=== PATIENT | female | born 1945 | race Caucasian/White ===

== ENCOUNTER 2017-08-26 10:40 | Inpatient (IN) | payer OTHER ==
[~2017-08-26] VITALS: Ht 170.2 cm; Wt 108.9 kg
[~2017-08-26 10:40] MED LIST: ADULT LOW DOSE81 MG PO; AUGMENTIN 875875 MG PO; B-100 COMPLEX1 EAC1 PO; CALCIUM; CARVEDILOL12.5 MG PO; CELEXA 20 MG TA20 MG PO; COQ10 SG 100 S1 EACH PO; FOLIC ACID; GLUCOSAMINE &1 EACH PO; HCTZ; NORVASC10 MG PO; PREDNISONE 20 M20 M1 PO; PRINIVIL20 MG PO; PROAIR HFA8.5 GM IH; SIMVASTATIN80 MG PO; VENTOLIN HFA 1818 GM INH; ZPAK PO
[2017-08-26 10:45] VITALS: BP 169/73
[2017-08-26] MEDS ORDERED: FISH OIL 1,001000 M2 PO (10:49)
[2017-08-26] MEDS ORDERED: LOVASTATIN 20 M20 MG PO (10:49)
[2017-08-26] MEDS ORDERED: FLAXSEED OIL1000 MG PO (10:49)
[2017-08-26 11:09] LABS: ABSOLUTE BASOPHILS 0.1 thou/uL (0.0-0.2); ABSOLUTE EOSINOPHILS 0.1 thou/uL (0.0-0.7); ABSOLUTE LYMPHOCYTES 1.2 thou/uL (0.8-5.3); ABSOLUTE MONOCYTES 0.7 thou/uL (0.0-1.2); ABSOLUTE NEUTROPHILS 3.8 thou/uL (1.6-8.1); BASOPHILS 1.2 %; EOSINOPHILS 2.4 %; HEMATOCRIT 40.3 % (37.0-47.0); HEMOGLOBIN 13.5 gm/dL (12.0-15.0); LYMPHOCYTES 20.6 %; MCH 30.1 pg (26.0-34.0); MCHC 33.5 g/dL (28.0-37.0); MCV 89.8 fL (80.0-100.0); MONOCYTES 11.5 %; MPV 8.4 fl. (7.2-11.1); NUCLEATED RBCS 0 /100WBC; PLATELET COUNT* 172 thou/uL (150-400); POLYS 64.3 %; RBC 4.49 mil/uL (4.20-5.00); RDW-CV 13.6 % (10.5-14.5)
[2017-08-26 11:16] LABS: ANION GAP 7 mmol/L (7-16); BUN 24 mg/dL (7-18); CHLORIDE 101 mmol/L (98-107); CO2 29 mmol/L (21-32); GLUCOSE 122 mg/dL (70-99); POTASSIUM 4.3 mmol/L (3.5-5.1); SODIUM 137 mmol/L (136-145)
[2017-08-26 11:20] LABS: INR 1.1; PROTIME 10.7 Seconds (9.20-11.50)
[2017-08-26 11:28] LABS: URINE BILIRUBIN NEGATIVE (Negative); URINE BLOOD NEGATIVE (Negative); URINE CLARITY CLEAR; URINE COLOR YELLOW; URINE GLUCOSE-RANDOM NEGATIVE (Negative); URINE KETONES NEGATIVE (Negative); URINE LEUKOCYTES-REFLEX TRACE (Negative); URINE NITRITE-REFLEX NEGATIVE (Negative); URINE PROTEIN NEGATIVE (Negative); URINE UROBILINOGEN 0.2 E.U./dl (0.2-1.0)
[2017-08-26 11:28] LABS: ALBUMIN 4.2 g/dL (3.4-5.0); ALKALINE PHOSPHATASE 58 U/L (46-116); NT-PRO BRAIN NAT PEPTIDE 109 pg/mL (<300); SGOT 25 U/L (15-37); SGPT 25 U/L (30-65); TOTAL BILIRUBIN 0.4 mg/dL (<0.1-1.0); TOTAL PROTEIN 7.8 g/dL (6.4-8.2); TROPONIN-I LEVEL <0.06 ng/mL (<0.06)
[2017-08-26 11:38] LABS: BACTERIA-REFLEX 1-9 Few /HPF (None Seen); CASTS None Seen /LPF (None Seen); CRYSTALS None Seen /LPF (None Seen); MUCUS None Seen strn/LPF (None Seen); SQUAMOUS 4-10 Moderate /LPF (0-3); URINE RBC 0-2 Rare /HPF (0-2); URINE WBC-REFLEX 0-5 Rare /HPF (0-5)
[2017-08-26 16:18] VITALS: BP 164/76
--- NOTE | 2017-08-26 16:26 | EKG ---
[place] [address] ELECTROCARDIOGRAM REPORT Name: RAINER JERNIGAN Room: [place] [address] ADM IN ..#: [id number] Admission: 08/26/17 Attend Phys: Candice Clement Discharge: Date of : 41 Report #: [id number] THIS REPORT FOR: //name// [facility] ED Test Date: 2017-08-26 Test Time: 10:50:05 Pat Name: RAINER JERNIGAN Department: Room: [facility] Gender: F Neck Cutter: Anum MCCLAIN : 1945 Requested By: Ganesh Alfonso Order Number: [id number] MD: Michele Mireles Measurements Intervals Echo Rate: 68 P: 44 TX: 216 QRS: 17 QRSD: 101 T: 85 QT: 396 QTc: 422 Interpretive Statements Sinus rhythm Borderline prolonged TX interval Borderline repolarization abnormality Compared to ECG 08/11/2016 16:34:18 No significant changes Electronically Signed On 08-26-2017 16:26:14 [employer] by Michele Mireles [email or web address] <ELECTRONICALLY SIGNED> By: Michele Mireles MD, [facility] 08/26/17 1626 1050 49 Michele Mireles MD, [facility] /EPI
[2017-08-26 16:30] VITALS: BP 180/68
[2017-08-26] MEDS ORDERED: FENOFIBRATE160 MG PO (17:00)
[2017-08-26] MEDS ORDERED: ALBUTEROL PO (17:00)
[2017-08-26] MEDS ORDERED: CRANBERRY200 MG PO (17:01)
[2017-08-26] MEDS ORDERED: ZANTAC 150MG T150 MG PO (17:01)
[2017-08-26] MEDS ORDERED: CO Q-10100 MG PO (17:02)
[2017-08-26] MEDS ORDERED: CINNAMON500 MG PO (17:02)
[2017-08-26 20:00] VITALS: BP 157/59
[2017-08-27] VITALS: BP 118/64
[2017-08-27 04:00] VITALS: BP 119/54
[2017-08-27 12:00] VITALS: BP 126/63
[2017-08-27 16:00] VITALS: BP 147/63
[2017-08-27 20:10] VITALS: BP 132/52
[2017-08-28] VITALS (7 sets, daily range): BP systolic 117–154; BP diastolic 48–82
--- NOTE | 2017-09-05 10:39 | CON ---
[address] [address] CONSULTATION Name: RAINER JERNIGAN Room: [address] M.R.#: [id number] Admission: 08/26/17 Attend Phys: Candice Clement Discharge: 08/28/17 Date of : 41 Report #: [id number] THIS REPORT FOR: //name// CC: Joe Burns DATE OF SERVICE: 08/27/2017 HISTORY OF PRESENT ILLNESS: This is a 72-year-old female patient who was evaluated by me for onset of dizziness yesterday. She indicated it started spontaneously without any head trauma. She is better this morning. Dizziness was severe yesterday and is relatively mild today. She did not have any associated motor deficit, but has pretty significant difficulty in ambulating and was using a walker. Overall, she is improving. She never had this episode before. 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 She gets Botox shots. It has never caused her any problem. She does have a history of hypertension, anxiety, had a kidney removed. She also has some cervical spine problems. She indicates she has arthritis there. This was a relevant 14-point review of system. She is not having any chest pain or any respiratory difficulty, nausea, vomiting, , musculoskeletal, constitutional, dermatological, hematological, psychiatric, throat, allergic symptom associated with the above symptomatology and basically rest of the 14-point review of systems was noncontributory. PAST MEDICAL HISTORY: Negative for this kind of dizziness. FAMILY HISTORY: Negative for any seizures. SOCIAL HISTORY: She does not smoke or drink any alcohol. PHYSICAL EXAMINATION: NEUROLOGIC: She is alert, responsive, able to follow simple and complex command. She believes her speech, concentration, fund of knowledge and memory is at her baseline. Cranial nerve examination 2-12 is unremarkable. There is no nystagmus there. Strength, sensation, reflexes and tone looks symmetrical. There is no meningeal sign. There is no carotid bruit in this patient. Fundus examination is unremarkable. GENERAL: She is a very well-developed individual who does not have any dysmorphic features of eyes, ears and face. HEENT: Her vision and hearing looks adequate and she has no thyroid mass. CARDIAC: Does not show any abnormality like atrial fibrillations or any abnormality of the heart sound, which can explain her symptom. PULMONARY: No respiratory difficulty or rhonchi was noticed either side. VITAL SIGNS: Blood pressure is 153/51, pulse is 71 and temperature is 97.3. [place] [address] CONSULTATION Name: RAINER JERNIGAN Room: [address]#: [id number] Admission: 08/26/17 Attend Phys: Candice Clement Discharge: 08/28/17 Date of : 41 Report #: [id number] LABORATORY DATA: WBC count is 6 and the GFR is 54. She did have an MRI of the brain, which was mostly unremarkable. IMPRESSION: This patient probably has labyrinthitis. However, the symptoms are pretty significant and she is even having ambulation difficulty. Because of that, I think it will be desirable to do some further workup in this patient. She does have trouble with the neck, so I will check an MRI of the C-spine and also check an MRA at the same time. I will get a carotid Doppler done. I will suggest an echocardiogram basically to complete the workup because the patient still has pretty pronounced symptoms, although she is better. RECOMMENDATIONS: 1. Workup as described above. 2. If workup is negative, she mainly needs management for labyrinthitis. 3. I discussed that aspect with the patient and she wants to follow this plan and we will do that. We will ask PT, OT to ambulate and see how she does with it. Thank you very much for this referral. <ELECTRONICALLY SIGNED> By: En Booker MD 09/05/17 1039 [id number] 2224Pharpreet Booker MD /nt
== END 2017-08-28 14:57 | disposition home or self-care (01) | DRG 683 ==
LOC: M.ERS 10:40 → M.TBA-ER 12:12 → M.2W 12:12
PROVIDERS: Family Medicine; ADMIT Internal Medicine
DX: I12.9 Hypertensive chronic kidney disease with stage 1 through stage 4 chronic kidney disease, or unspecified chronic kidney disease (principal); D68.59 Other primary thrombophilia; I16.0 Hypertensive urgency; H81.10 Benign paroxysmal vertigo, unspecified ear; N18.2 Chronic kidney disease, stage 2 (mild); F41.9 Anxiety disorder, unspecified; F32.9 Major depressive disorder, single episode, unspecified; K21.9 Gastro-esophageal reflux disease without esophagitis; G24.5 Blepharospasm; Z90.710 Acquired absence of both cervix and uterus; Z90.49 Acquired absence of other specified parts of digestive tract; Z85.528 Personal history of other malignant neoplasm of kidney; Z79.899 Other long term (current) drug therapy; Z88.1 Allergy status to other antibiotic agents; Z88.5 Allergy status to narcotic agent; Z88.6 Allergy status to analgesic agent; Z88.8 Allergy status to other drugs, medicaments and biological substances; Z82.49 Family history of ischemic heart disease and other diseases of the circulatory system

== ENCOUNTER → 2018-01-21 | Outpatient (CLI) | payer OTHER ==
[~2018-01-21] MED LIST changes: +ALBUTEROL PO; +CINNAMON500 MG PO; +CO Q-10100 MG PO; +CRANBERRY200 MG PO; +FENOFIBRATE160 MG PO; +FISH OIL 1,001000 M2 PO; +FLAXSEED OIL1000 MG PO; +LOVASTATIN 20 M20 MG PO; +ZANTAC 150MG T150 MG PO
== END ==
LOC: M.RAD 11:00
DX: Z12.31 Encounter for screening mammogram for malignant neoplasm of breast (principal)